=== PATIENT | female | born 1940 | race Hispanic/Latino ===

== ENCOUNTER 2022-11-14 16:06 | Emergency (ER) | payer MEDICARE, SELFPAY ==
[2022-11-14 16:07] VITALS: BP 113/59; PULSE 91; RESP 14; TEMP 36.2; O2SAT 98; BMI 25.0
[2022-11-14 16:17] VITALS: BP 116/76; PULSE 94; RESP 18; O2SAT 96
--- NOTE | 2022-11-14 16:23 | CT_ITS ---
INDICATION: Left lower quadrant abdominal pain. History of lymph node cancer and cardiac pacemaker. EXAMINATION: CT ABDOMEN AND PELVIS WITH CONTRAST - CT Abdomen And Pelvis W/ Contrast Injection TECHNIQUE: Helically acquired images were obtained of the abdomen and pelvis following IV contrast. A radiation dose optimization technique was used for this scan. IV Contrast dosage and agent: 100 mL of Isovue 370 Oral contrast: None. COMPARISON: None. FINDINGS: LOWER CHEST: Lung bases are clear. No cardiomegaly or pericardial effusion. Pacer leads are seen in the right heart. Coronary artery calcifications. LIVER: Multiple simple cysts seen within the liver. The largest, in segment 6, measures 5.8 x 4.2 x 4.2 cm in size. There is no enhancing mass. No focal mass. GALLBLADDER AND BILIARY TREE: Status post cholecystectomy. No intra- or extrahepatic biliary ductal dilation. PANCREAS: No focal cystic or solid mass. SPLEEN: Normal size without focal cystic or solid mass. ADRENAL GLANDS: Normal right adrenal gland. There is a low-attenuation 1.9 x 1.6 x 1.6 cm left adrenal mass suggesting adenoma. KIDNEYS AND URETERS: Normal renal size and position. No hydronephrosis. Normal ureters. PERITONEUM: No ascites or free air. No other fluid collection. BOWEL: Normal stomach. Mild wall thickening of the distal small bowel. Proximal small bowel is grossly normal. Minimal luminal narrowing of the distal ileum. Normal colon. Normal appendix. LYMPH NODES: No enlarged mesenteric or retroperitoneal lymph nodes. VESSELS: There are sclerotic changes of the thoracic aorta and iliac arteries without aneurysm or dissection. Normal IVC. URINARY BLADDER: Unremarkable. REPRODUCTIVE ORGANS: Normal uterus there is no adnexal mass. ABDOMINAL WALL: Small umbilical hernia of omental fat. There is a subumbilical midline hernia of omental fat. BONES: Degenerative changes of the lumbar spine without lytic or blastic lesions. Degenerative changes of the hips. CT/Abdomen/Pelvis W IV Cont ONLY IMPRESSION: 1. Findings suggestive of ileitis. 2. No renal, ureteral or urinary bladder abnormality. 3. Multiple hepatic cysts. 4. Degenerative changes of the lumbar spine. 5. Atherosclerotic changes of the aorta. 6. Cardiac pacemaker. Electronically Signed: Ever Hendrix DO at 18:20 EST ,
[2022-11-14] MEDS: 0.9% Normal Saline 1,000 ML 1000 ML IV (16:36)
[2022-11-14] MEDS: Ondansetron 4 MG/2 ML Vial IV (16:37)
[2022-11-14] MEDS: Morphine 2 MG/ML Syringe IV (16:38)
[2022-11-14 16:50] LABS: Absolute Lymphocyte Count 1.16 X10^3/uL (0.83-4.51); Absolute Neutrophil Count 7.5 X10^3/uL (2.0-7.7); Basophil# 0.04 X10^3/uL; Basophil% 0.4 % (0-1); Eosinophil# 0.13 X10^3/uL; Eosinophils% 1.4 % (0-5); Hematocrit 42.3 % (37-47); Hemoglobin 13.4 g/dL (12.0-15.0); Lymphocyte # 1.16 X10^3/ul (0.83-4.51); Lymphocyte % 12.6 % (19-41); Mean Corp Hgb Conc 31.7 g/dL (32-36); Mean Corpuscular Hgb 29.1 pg (27.0-32.0); Mean Corpuscular Volume 91.8 fL (81-99); Mean Platelet Vol. 9.8 fl (6.2-12.0); Monocyte# 0.36 X10^3/uL; Monocyte% 3.9 % (0-10); NRBC Flagged by Analyzer 0 % (0-5); Neutrophil # 7.48 X10^3/uL (2.7-7.7); Neutrophil % 81.3 % (47-70); Platelet Count 228 K/mm3 (150-450); RBC Distribution Width CV 14.4 % (11.6-14.6); RBC Distribution Width SD 48.8 fl (35.1-43.9); Red Blood Count 4.61 M/mm3 (4.2-5.4); White Blood Count 9.2 K/mm3 (4.4-11.0)
[2022-11-14 17:06] LABS: Bacteria 0 SEEN /hpf (None Seen)
[2022-11-14 17:08] LABS: Color, Urine Yellow (Yellow); Glucose, Dipstick Normal (Normal); Ketone-Dipstick Negative (Negative); Leukocyte Esterase-Dipstick 25 /ul (Negative); Nitrite-Dipstick Negative (Negative); Occult Blood-Urine 10 /ul (Negative); Protein-Dipstick 30 mg/dl (Negative); Urine Clarity Clear (Clear); Urine Urobilinogen Normal (Normal)
[2022-11-14 17:12] LABS: ALB/GLOB Ratio 0.8 RATIO (0.9-2.4); AST(SGOT) 37 U/L (15-37); Alanine Aminotransfer ALT/SGPT 24 U/L (13-56); Albumin, Serum 3.3 g/dL (3.2-5.0); Alkaline Phosphatase 69 U/L (45-117); Anion Gap 9 (5-15); BUN 27 mg/dL (7-18); BUN/Creat Ratio 26.7 RATIO (10-20); Chloride 107 mmol/L (98-107); Creatinine, Serum 1.01 mg/dL (0.55-1.02); EST Glomerular Filtration Rate 56 mL/min (>60); Est Glom Filt Rate - Afr Amer 68 mL/min (>60); Estimated Creatinine Clearance 34.55 ml/min; Globulin 4.4 g/dL (2.2-4.2); Glucose 108 mg/dL (74-106); Lipase 133 U/L (73-393); Potassium 4.2 mmol/L (3.5-5.1); Protein, Total 7.7 g/dL (6.4-8.2); Sodium Level 137 mmol/L (136-145)
[2022-11-14 17:13] LABS: Urine Bilirubin Dipstick 1 mg/dL (Negative)
[2022-11-14 17:18] LABS: Red Blood Cells-Urine 0-5 SEEN /hpf (0-5); Squamous Epithelial Cells - UA 0-5 SEEN /hpf (5-10); White Blood Cells 0-5 SEEN /hpf (0-5)
[2022-11-14 17:19] LABS: Hyaline Cast 0-5 SEEN /lpf (0-5); Mucous, Urine 1+ /hpf (<or=2+)
--- NOTE | 2022-11-14 17:29 | EX.ED.DYSGE1 ---
HPI <ANNA Jordan - Last Filed: 11/14/22 18:44> History of Present Illness Chief Complaint: Abd Pain Narrative Narrative: Patient is an 82-year-old female with history of hypertension, CHF who presents to the emergency department for nausea, left lower abdominal pain, diarrhea. Patient states that she had a congestion, upper respiratory tract infection greater than 10 days ago. Patient states that for the last 5 days, she has been having diarrhea, today, she has had severe pain to her left lower quadrant. She denies any vomiting, she denies any blood in her stool or vomit. She denies any sick contacts. She is [place]ian-speaking, however patient has her son who translates for her, patient also does speak [place]. [facility] <ANNA Jordan - Last Filed: 11/14/22 18:44> [facility] Medical History (Updated 11/14/22 @ 18:42 by ANNA Jordan) Lymph node cancer Pacemaker Home Medications dicyclomine 20 mg tablet 20 mg PO TID #20 tabs 11/14/22 [Rx Last Taken Unknown] ondansetron 4 mg disintegrating tablet 4 mg PO Q8H PRN PRN Nausea #14 tabs 11/14/22 [Rx Last Taken Unknown] Allergy/AdvReac Type Severity Reaction Status Date / Time No Known Allergies Allergy Verified 11/14/22 16:07 Social History Smoking Status: Never smoker ROS <ANNA Jordan - Last Filed: 11/14/22 18:44> ROS ED ROS Narrative Constitutional: Negative for fever, chills, weight loss, weakness Eyes: Negative for vision loss, vision change, double vision ENT: Negative for any sore throat, ear pain, congestion Cardiovascular: Negative for any chest pain, tightness, palpitations Respiratory: Negative for any cough, sputum production, hemoptysis, dyspnea, dyspnea on exertion, orthopnea Gastrointestinal: Negative for any vomiting, constipation, blood in stool, blood in vomit. Patient has positive for abdominal pain, nausea, diarrhea : Negative for any urinary frequency, dysuria, retention, blood in urine Muscle skeletal: Negative for any muscle joint pain, stiffness, myalgias, arthralgias, neck pain, back pain Neurological: Negative for any headache, syncope, numbness or tingling, dizziness Skin: Negative for any rashes, lumps, itching, abrasions, lacerations Psychiatric: Negative for any depression, anxiety, stress, suicidal ideation, homicidal ideation Hematologic: Negative for any easy bruising, excessive bruising, easy bleeding Allergies: Negative for any eczema, hives, rash EXAM <ANNA Jordan - Last Filed: 11/14/22 18:44> Physical Exam Narrative Exam Narrative: Vital signs reviewed. Patient appears generally well. HEET: Head normocephalic atraumatic, TMs clear bilaterally. Posterior pharynx is clear, moist mucous membranes. Nares clear bilaterally. Neck: Supple with no lymphadenopathy or tenderness. No signs of meningismus, negative jolt sign. Cardiac: Regular rate and rhythm no murmurs gallops or rubs, equal peripheral pulses bilaterally. Respiratory: Lungs clear to auscultation bilaterally. No chest tenderness. Abdomen: Soft, nondistended. No abdominal bruit or pulsatile masses. No hepatosplenomegaly patient is abdominal pain in the left lower quadrant Extremities: No peripheral edema, no signs of gross trauma or deformity. Active full range of motion of all extremities. Neuro: Cranial nerves II through XII intact, no focal neurological deficits. Skin: Clean dry and intact with no rash, purpura, petechiae, vesicles or pustules. Backs/flank: No CVA tenderness, no midline spinal tenderness, no deformity. Psych: Normal mood and affect. No SI, HI or acute psychosis. Const Vital Signs: 11/14/22 16:07 11/14/22 16:17 11/14/22 18:11 Temperature 97.2 F L Temperature Source Temporal Pulse Rate 91 94 95 Respiratory Rate 14 18 17 Blood Pressure 113/59 L 116/76 108/60 Blood Pressure Mean 77 89 76 Pulse Ox 98 96 99 Oxygen Delivery Method Room Air Room Air Room Air 11/14/22 19:12 Temperature Temperature Source Pulse Rate 100 Respiratory Rate Blood Pressure 136/89 H Blood Pressure Mean Pulse Ox 94 Oxygen Delivery Method Positive well nourished and well developed General Appearance ED: well developed <Dr. Carlitos Mitchell MD - Last Filed: 11/14/22 19:51> Physical Exam Const Vital Signs: 11/14/22 16:07 11/14/22 16:17 11/14/22 18:11 Temperature 97.2 F L Temperature Source Temporal Pulse Rate 91 94 95 Respiratory Rate 14 18 17 Blood Pressure 113/59 L 116/76 108/60 Blood Pressure Mean 77 89 76 Pulse Ox 98 96 99 Oxygen Delivery Method Room Air Room Air Room Air 11/14/22 19:12 Temperature Temperature Source Pulse Rate 100 Respiratory Rate Blood Pressure 136/89 H Blood Pressure Mean Pulse Ox 94 Oxygen Delivery Method MDM <Ricky Ramsay NP-C - Last Filed: 11/14/22 18:44> [facility] Lab Data Attestation: I reviewed the patient's lab results. Labs: Laboratory Results - last 24 hr 11/14/22 11/14/22 11/14/22 16:40 16:40 17:03 WBC 9.2 RBC 4.61 Hgb 13.4 Hct 42.3 MCV 91.8 MCH 29.1 MCHC 31.7 L RDW Std Deviation 48.8 H RDW Coeff of Frank 14.4 Plt Count 228 MPV 9.8 Immature Gran % (Auto) 0.400 Neut % (Auto) 81.3 H Lymph % (Auto) 12.6 L [place] % (Auto) 3.9 Eos % (Auto) 1.4 Baso % (Auto) 0.4 Absolute Neuts (auto) 7.5 Absolute Lymphs (auto) 1.16 Nucleated RBC % 0 Sodium 137 Potassium 4.2 Chloride 107 Carbon Dioxide 21.0 Anion Gap 9 BUN 27 H Creatinine 1.01 Estim Creat Clear Calc 34.55 Est GFR (MDRD) Af Amer 68 Est GFR (MDRD) Non-Af 56 L BUN/Creatinine Ratio 26.7 H Glucose 108 H Calcium 9.0 Total Bilirubin 0.50 AST 37 ALT 24 Alkaline Phosphatase 69 Total Protein 7.7 Albumin 3.3 Globulin 4.4 H Albumin/Globulin Ratio 0.8 L Lipase 133 Urine Color Yellow Urine Clarity Clear Urine pH 5.0 Ur Specific [place] 1.020 Urine Protein 30 H Urine Glucose (UA) Normal Urine Ketones Negative Urine Occult Blood 10 H Urine Nitrite Negative Urine Bilirubin 1 H Urine Urobilinogen Normal Ur Leukocyte Esterase 25 H Urine RBC 0-5 SEEN Urine WBC 0-5 SEEN Ur Squamous Epith Cells 0-5 SEEN Urine Bacteria 0 SEEN Hyaline Casts 0-5 SEEN Urine Mucus 1+ Radiography Diagnostic Testing: Clinical Impression(s) from Imaging Studies Abdomen/Pelvis CT 11/14/22 16:23 IMPRESSION: 1. Findings suggestive of ileitis. 2. No renal, ureteral or urinary bladder abnormality. 3. Multiple hepatic cysts. 4. Degenerative changes of the lumbar spine. 5. Atherosclerotic changes of the aorta. 6. Cardiac pacemaker. Electronically Signed: Ever Hendrix DO at 18:20 EST Reading Location ID and State: [address] [place] [address] Tel [phone], Service support , Treatment and Re-Evaluation :: All radiologic examinations were read, reviewed by the emergency department attending. From these reads, a plan of care will be put in place. Patient appears generally well, patient's vital signs are stable, patient appears nontoxic. Patient presents the emergency department for multiple days of diarrhea, left lower quadrant abdominal pain that began today. Patient did get a work-up for generalized abdominal pain, I was concerned for any bowel obstruction, acute diverticulitis. Patient's laboratory values show a normal CBC, patient's chemistries were grossly unremarkable. Patient's lipase was negative. Patient's urinalysis was negative for any infection. Patient's CAT scan of the abdomen pelvis shows findings that were suggestive of ileitis. This does explain the patient's diarrhea as well as generalized abdominal cramping. Patient did have relief of symptoms with IV fluids, IV Zofran, IV morphine. Patient had multiple hepatic cysts, no significant bowel obstruction, infection. Patient will be treated symptomatically. She will be given a prescription for Bentyl as well as Zofran. Patient will follow-up closely with her PCP. I made the patient and the patient's son aware of the hepatic cyst. All questions were answered. They were happy with the plan of care, both the patient and son were given return precaution. Patient stable for discharge. <Dr. Carlitos Mitchell MD - Last Filed: 11/14/22 19:51> [facility] Narrative Medical decision making narrative: I have personally performed a face to face assessment of the patient and have reviewed the SAEED Note. I performed a substantive portion of the visit including all aspects of the following. My oshea findings include: History is remarkable for initial upper respiratory tract infection symptoms that started approximately week ago. The last 3 days she has had diarrhea with left lower quadrant abdominal pain. She had a colonoscopy 3 years ago when she was in [place]. Those records are not available. She believes there was no abnormality. She denies history of diverticulosis diverticulitis. She denies blood or mucus in her diarrhea Moira. She has not been on an antibiotic recently. She denies foul odor to her stool. She denies documented fever. She denies urinary symptoms Exam is remarkable for tenderness in the left lower quadrant with guarding and question of percussion tenderness. Bowel sounds are slightly increased. There is no hepatosplenomegaly. There is no pump muscle mass or abdominal bruit. There is no CVA tenderness. There is no suprapubic discomfort. There is no inguinal lymphadenopathy. Heart lung exam is unremarkable. Mucosa might be slightly dry. Medical Decision Making differential diagnosis would include diverticulitis, infectious colitis due to diarrhea, viral enteritis. Will obtain white count assess white count and differential and rule out anemia. Obtain to assess renal function, electrolytes and evaluate specifically for hypokalemia. UA to assess specific gravity and determine there is any evidence of infection. CT of the abdomen was ordered because of concern for diverticulitis and in light of patient's a need to evaluate for potential malignancy. CBC is unremarkable. Comp metabolic panel reveals elevated BUN of 27 with a BUN to creatinine ratio of 27:1. Urine specific gravity is slightly elevated 1.020. Macro was remarkable for proteinuria, occult blood and leukoesterase. Nitrites were negative microscopic reveals 0-5 RBCs, WBCs and cells. No bacteria was noted. The UA is unremarkable for infection. Other additions or changes: [None] Lab Data Labs: Laboratory Results - last 24 hr 11/14/22 11/14/22 11/14/22 16:40 16:40 17:03 WBC 9.2 RBC 4.61 Hgb 13.4 Hct 42.3 MCV 91.8 MCH 29.1 MCHC 31.7 L RDW Std Deviation 48.8 H RDW Coeff of Frank 14.4 Plt Count 228 MPV 9.8 Immature Gran % (Auto) 0.400 Neut % (Auto) 81.3 H Lymph % (Auto) 12.6 L [place] % (Auto) 3.9 Eos % (Auto) 1.4 Baso % (Auto) 0.4 Absolute Neuts (auto) 7.5 Absolute Lymphs (auto) 1.16 Nucleated RBC % 0 Sodium 137 Potassium 4.2 Chloride 107 Carbon Dioxide 21.0 Anion Gap 9 BUN 27 H Creatinine 1.01 Estim Creat Clear Calc 34.55 Est GFR (MDRD) Af Amer 68 Est GFR (MDRD) Non-Af 56 L BUN/Creatinine Ratio 26.7 H Glucose 108 H Calcium 9.0 Total Bilirubin 0.50 AST 37 ALT 24 Alkaline Phosphatase 69 Total Protein 7.7 Albumin 3.3 Globulin 4.4 H Albumin/Globulin Ratio 0.8 L Lipase 133 Urine Color Yellow Urine Clarity Clear Urine pH 5.0 Ur Specific [place] 1.020 Urine Protein 30 H Urine Glucose (UA) Normal Urine Ketones Negative Urine Occult Blood 10 H Urine Nitrite Negative Urine Bilirubin 1 H Urine Urobilinogen Normal Ur Leukocyte Esterase 25 H Urine RBC 0-5 SEEN Urine WBC 0-5 SEEN Ur Squamous Epith Cells 0-5 SEEN Urine Bacteria 0 SEEN Hyaline Casts 0-5 SEEN Urine Mucus 1+ Radiography Diagnostic Testing: Clinical Impression(s) from Imaging Studies Abdomen/Pelvis CT 11/14/22 16:23 IMPRESSION: 1. Findings suggestive of ileitis. 2. No renal, ureteral or urinary bladder abnormality. 3. Multiple hepatic cysts. 4. Degenerative changes of the lumbar spine. 5. Atherosclerotic changes of the aorta. 6. Cardiac pacemaker. Electronically Signed: Ever Hendrix DO at 18:20 EST Reading Location ID and State: [address] [place] [address] Tel [phone], Service support , Discharge Plan Triage Chief Complaint: Abd Pain ED Midlevel Provider: Ricky Ramsay ED Provider: Carlitos Mitchell Dx/Rx/DC Orders Clinical Impression: Ileitis, Diarrhea, Abdominal pain Instructions: ED Abdominal Pain Unkn Cause Fem, ED Diarrhea, Unknown Cause, ED Gastroenteritis, Noninfectious Prescriptions: New ondansetron 4 mg tablet,disintegrating 4 mg PO Q8H PRN PRN (Reason: Nausea) Qty: 14 0RF dicyclomine 20 mg tablet 20 mg PO TID Qty: 20 0RF Primary Care Provider: Care Physician,No Primary Referrals: Care Physician,No Primary [Primary Care Provider] - Activity Restrictions/Additional Instructions: Advance your diet as tolerated. Use the Zofran, Bentyl as needed. If the diarrhea persist past tomorrow, you may use Imodium [id number]. Disposition Disposition: Home, Self Care Discharge Date/Time: 11/14/22 19:24
[2022-11-14 18:11] VITALS: BP 108/60; PULSE 95; RESP 17; O2SAT 99
[2022-11-14 19:12] VITALS: BP 136/89; PULSE 100; O2SAT 94
== END 2022-11-14 19:24 | disposition home or self-care (01) ==
PROVIDERS: Nurse Practitioner; Emergency Provider Emergency Medicine; Visit Provider Emergency Medicine
DX: K52.9 Noninfective gastroenteritis and colitis, unspecified (principal); I11.0 Hypertensive heart disease with heart failure; I50.9 Heart failure, unspecified
CPT/HCPCS: 74177; 80053; 81001; 83690; 85025; 96361; 96374; 96375; 99283; J7030; Q9967; A4216; J2405

== ENCOUNTER → 2023-03-17 | Outpatient (CLI) | payer MEDICARE, SELFPAY ==
--- NOTE | 2023-03-17 11:18 | ECHOCSONC_ITS ---
Reason For Study: MV Insufficiency Procedure This was a 2D Doppler, Color Flow transthoracic echocardiogram. Myocardial strain analysis was performed in this exam to aid in the assessment of cardiac function. Contrast injection was performed. Exam performed in department. Left Ventricle Normal LV size. The left ventricular ejection fraction is 25 %. Stage 1 diastolic dysfunction. There is severe global hypokinesis of the left ventricle. Right Ventricle Normal RV size. ICD or pacer leads identified within the right ventricle. Normal systolic function. Atria Normal left atrium. Normal right atrium. Mitral Valve There is moderate mitral annular calcification. Mild (1+) eccentric mitral valve insufficiency. Tricuspid Valve Normal tricuspid valve. Mild tricuspid valve insufficiency. Aortic Valve Trisinus/trileaflet aortic valve. Mild focal aortic valve calcification. Mild (1+) aortic valve insufficiency. Pulmonic Valve The pulmonic valve is not well visualized. Great Vessels Normal aortic root. The pulmonary artery is normal size. Normal inferior vena cava. Pericardium/Pleural No pericardial effusion. Medication Diluted definity 2ml given slow IV push to enhance endocardial definition. MMode/2D Measurements & Calculations LVIDd: 4.7 cm IVSd: 1.2 cm Ao root diam: 2.7 cm LVIDs: 4.0 cm LVPWd: 1.1 cm LA dimension: 3.5 cm RVDd: 2.8 cm FS: 16.6 % LAV(MOD-bp): 48.3 ml LVAd ap4: 33.1 cm2 SV(MOD-sp4): 43.7 ml LAV(MOD-bp) Indexed: 28.9 ml/m2 LVLd ap4: 7.9 cm LAV(MOD-sp2): 49.3 ml EDV(MOD-sp4): 115.5 ml LAV(MOD-sp4): 47.6 ml EDV(sp4-el): 118.2 ml LVAs ap4: 23.7 cm2 LVLs ap4: 6.8 cm ESV(MOD-sp4): 71.8 ml ESV(sp4-el): 70.2 ml EF(MOD-sp4): 37.8 % EF(sp4-el): 40.6 % SV(sp4-el): 48.0 ml LA A4 area: 17.7 cm2 RA A4 area: 9.8 cm2 Time Measurements MV dec time: 0.26 sec Doppler Measurements & Calculations MV E max vineet: 78.1 cm/sec Lat Peak E' Vineet: 8.9 cm/sec Med Peak E' Vineet: 3.5 cm/sec MV A max vineet: 147.3 cm/sec E/E' lat: 8.7 E/E' med: 22.5 MV E/A: 0.53 MV V2 max: 170.0 cm/sec Ao V2 max: 152.1 cm/sec MV max P.6 mmHg MV dec slope: 298.3 cm/sec2 Ao max P.3 mmHg MV V2 mean: 99.1 cm/sec Ao V2 mean: 119.7 cm/sec MV mean P.6 mmHg Ao mean P.1 mmHg MV V2 VTI: 35.3 cm Ao V2 VTI: 30.1 cm AI max vineet: 360.4 cm/sec LV V1 max: 90.4 cm/sec PA V2 max: 88.6 cm/sec AI max P.0 mmHg LV V1 max P.3 mmHg AI dec slope: 222.8 cm/sec2 AI P1/2t: 473.7 msec TR max vineet: 190.3 cm/sec TR max P.5 mmHg ECHO/ONC Echo Complete W/ Contrast Interpretation Summary Normal LV size. The left ventricular ejection fraction is 25 %. Stage 1 diastolic dysfunction. There is severe global hypokinesis of the left ventricle. Contrast injection was performed. Ordering Physician: Figueroa Whitman Referring Physician: Katie Miguel Performed By: Gladis Simpson, DANIKA, RVT
== END | disposition home or self-care (01) ==
PROVIDERS: PCP Internal Medicine; Referring Provider Internal Medicine Cardiovascular Disease; Visit Provider Internal Medicine Cardiovascular Disease
DX: I34.0 Nonrheumatic mitral (valve) insufficiency (principal)
CPT/HCPCS: 93306; 93356; Q9957; A4216; C8929

== ENCOUNTER → 2023-03-31 | Outpatient (CLI) | payer MEDICARE, SELFPAY ==
[2023-03-31 12:49] LABS: Absolute Lymphocyte Count 2.46 X10^3/uL (0.83-4.51); Absolute Neutrophil Count 3.2 X10^3/uL (2.0-7.7); Basophil# 0.07 X10^3/uL; Basophil% 1.1 % (0-1); Eosinophil# 0.23 X10^3/uL; Eosinophils% 3.5 % (0-5); Hematocrit 42.1 % (37-47); Hemoglobin 13.3 g/dL (12.0-15.0); Lymphocyte # 2.46 X10^3/ul (0.83-4.51); Lymphocyte % 37.7 % (19-41); Mean Corp Hgb Conc 31.6 g/dL (32-36); Mean Corpuscular Hgb 30.1 pg (27.0-32.0); Mean Corpuscular Volume 95.2 fL (81-99); Mean Platelet Vol. 9.8 fl (6.2-12.0); Monocyte# 0.53 X10^3/uL; Monocyte% 8.1 % (0-10); NRBC Flagged by Analyzer 0 % (0-5); Neutrophil # 3.22 X10^3/uL (2.7-7.7); Neutrophil % 49.3 % (47-70); Platelet Count 255 K/mm3 (150-450); RBC Distribution Width CV 13.3 % (11.6-14.6); RBC Distribution Width SD 47.1 fl (35.1-43.9); Red Blood Count 4.42 M/mm3 (4.2-5.4); White Blood Count 6.5 K/mm3 (4.4-11.0)
[2023-03-31 13:03] LABS: Vitamin D,25 Hydroxy 29.3 ng/mL
[2023-03-31 13:11] LABS: ALB/GLOB Ratio 0.9 RATIO (0.9-2.4); AST(SGOT) 19 U/L (15-37); Alanine Aminotransfer ALT/SGPT 26 U/L (13-56); Albumin, Serum 3.6 g/dL (3.2-5.0); Alkaline Phosphatase 75 U/L (45-117); Anion Gap 4 (5-15); BUN 16 mg/dL (7-18); BUN/Creat Ratio 21.3 RATIO (10-20); Chloride 106 mmol/L (98-107); Cholesterol 198 mg/dL (200); Creatinine, Serum 0.75 mg/dL (0.55-1.02); EST Glomerular Filtration Rate 79 mL/min (>60); Est Glom Filt Rate - Afr Amer 95 mL/min (>60); Globulin 4.1 g/dL (2.2-4.2); Glucose 102 mg/dL (74-106); High Density Lipoprotein 39 mg/dL; Potassium 4.6 mmol/L (3.5-5.1); Protein, Total 7.7 g/dL (6.4-8.2); Sodium Level 139 mmol/L (136-145); Thyroid Stim Hormone (TSH) 0.74 uIU/mL (0.358-3.74); Triglycerides 182 mg/dL; Very Low Density Lipoprotein 36 mg/dL (5-40)
[2023-03-31 16:56] LABS: Hemoglobin A1c 5.9 % (3.8-5.6)
== END | disposition home or self-care (01) ==
LOC: LAB 12:12
PROVIDERS: PCP Internal Medicine; Referring Provider Internal Medicine; Visit Provider Internal Medicine
DX: I11.0 Hypertensive heart disease with heart failure (principal); I50.42 Chronic combined systolic (congestive) and diastolic (congestive) heart failure; I44.2 Atrioventricular block, complete; E11.9 Type 2 diabetes mellitus without complications; E55.9 Vitamin D deficiency, unspecified; Z13.220 Encounter for screening for lipoid disorders
CPT/HCPCS: 36415; 80053; 80061; 82306; 83036; 84443; 85025